=== PATIENT | male | born 1955 | race Caucasian/White ===

== ENCOUNTER 2018-01-07 00:37 | Emergency (ER) | payer OTHER ==
[2018-01-07 01:01] VITALS: BP 153/85; PULSE 75; TEMP 97.6; BMI 25.8
--- NOTE | 2018-01-07 01:14 | PDOC ---
History of Present Illness - General Chief Complaint: Blood Pressure Problem Stated Complaint: BP PROBLEM Time Seen by Provider: 01/07/18 00:46 - History of Present Illness Initial Comments: 01/07/18 01:12 CHIEF COMPLAINT: blood pressure concern HISTORY OF PRESENT ILLNESS: The patient is a 59 year old male with no significant past medical history who presents to the ED with high blood pressure. The patient reports lightheadedness this evening and went to check his blood pressure. He reports his BP was in the 160s. The patient described his lightheadedness as intermittent and now resolved. Pt denies vertigo.. The patient states he ate garlic and 20 minutes later he checked it again and it went up to the 170s, and his daughter told him to come to the ER. Pt states he has no hx of htn, but states he has been having alot of stress from work. Pt states he is currently asymptomatic. The patient denies headache, vision changes, numbness/weakness/tingling, fever, chills, cough, SOB, chest pain, palpitations, abdominal pain, nausea, vomiting, and diarrhea. PAST MEDICAL HISTORY: Denies past medical history FAMILY HISTORY: Denies SOCIAL HISTORY: Lives at home with ____. Occupation: . Denies tobacco, alcohol, illicit drug use. SURGICAL HISTORY: Denies ALLERGIES: No known drug allergies REVIEW OF SYSTEMS General/Constitutional: Denies fever or chills. Denies weakness, weight change. HEENT: Denies change in vision. Denies ear pain or discharge. Denies sore throat. Cardiovascular: Denies chest pain or shortness of breath. Respiratory: Denies cough, wheezing, or hemoptysis. Gastrointestinal: Denies nausea, vomiting, diarrhea or constipation. Denies rectal bleeding. Genitourinary: Denies dysuria, frequency, or change in urination. Musculoskeletal: Denies joint or muscle swelling or pain. Denies neck or back pain. Skin and breasts: Denies rash or easy bruising. Neurologic: Denies headache, vertigo, loss of consciousness, or loss of sensation. Psychiatric: Denies depression or anxiety. Endocrine: Denies increased thirst. Denies abnormal weight change. Hematologic/Lymphatic: Denies anemia, easy bleeding, or history of blood clots. Allergic/Immunologic: Denies hives or skin allergy. Denies latex allergy. PHYSICAL EXAM General Appearance: Well-appearing, appropriately dressed. No apparent distress , no intoxication. HEENT: EOMI, PERRLA, normal ENT inspection, normal voice, TMs normal, pharynx normal. No conjunctival pallor. No photophobia, scleral icterus. Neck: Supple. Trachea midline. No tenderness, rigidity, carotid bruit, stridor , lymphadenopathy, or thyromegaly. Respiratory/Chest: Lungs CTAB. No shortness of breath, chest tenderness, respiratory distress, accessory muscle use. No crackles, rales, rhonchi, stridor , wheezing, dullness Cardiovascular: RRR. S1, S2. No JVD, murmur, bradycardia, tachycardia. Vascular Pulses: Dorsalis-Pedis (R): 2+, Dorsalis-Pedis (L): 2+ Gastrointestinal/Abdominal: Normal bowel sounds. Abdomen soft, non-distended. No tenderness or rebound tenderness. No organomegaly, pulsatile mass, guarding , hernia, hepatomegaly, splenomegaly. Lymphatic: No adenopathy, tenderness. Musculoskeletal/Extremities: Normal inspection. FROM of all extremities, normal capillary refill. Pelvis Stable. No CVA tenderness. No tenderness to extremities, pedal edema, swelling, erythema or deformity. Integumentary: Appropriate color, dry, warm. 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 Fully oriented, alert. Appropriate mood/affect. Motor strength 5/5. No appreciable EOM palsy, facial droop or sensory deficit. 01/07/18 01:27 Past History - Past Medical History Allergies/Adverse Reactions: Allergies Allergy/AdvReac Type Severity Reaction Status Date / Time No Known Allergies Allergy Verified 01/07/18 00:59 Home Medications: Ambulatory Orders NK [No Known Home Medication] 11/17/15 - Suicide/Smoking/Psychosocial Hx Smoking History: Never smoked Have you smoked in the past 12 months: No Information on smoking cessation initiated: No Hx Alcohol Use: No Drug/Substance Use Hx: No Substance Use Type: None *Physical Exam - Vital Signs Last Vital Signs Temp Pulse Resp BP Pulse Ox 97.6 F 75 20 153/85 99 01/07/18 00:59 01/07/18 00:59 01/07/18 00:59 01/07/18 00:59 01/07/18 00:59 *DC/Admit/Observation/Transfer Diagnosis at time of Disposition: Lightheaded - Discharge Dispostion Disposition: HOME Condition at time of disposition: Stable Admit: No - Referrals Referrals: Branden Mcintyre MD [Primary Care Provider] - Daren Penn MD [Staff Physician] - - Patient Instructions Printed Discharge Instructions: DI for High Blood Pressure, How to Monitor Your Blood Pressure at Home Additional Instructions: Please follow up with your primary care doctor next week for continued management of your blood pressure. There is no cause for emergent concern today. If you develop any chest pain, shortness of breath, new headache, or any new or worsening symptoms, please return to the ER. - Post Discharge Activity
--- NOTE | 2018-01-07 08:49 | EKG ---
Test Reason : Blood Pressure : / mmHG Vent. Rate : 060 BPM Atrial Rate : 060 BPM P-R Int : 134 ms QRS Dur : 092 ms QT Int : 432 ms P-R-T Axes : 045 057 022 degrees QTc Int : 432 ms NORMAL SINUS RHYTHM NORMAL ECG WHEN COMPARED WITH ECG OF 17-NOV-2015 18:24, PREMATURE VENTRICULAR COMPLEXES ARE NO LONGER PRESENT Confirmed by ALCON LINARES, JASMIN ([id number]) on 01/07/2018 8:49:10 AM Referred By: Confirmed By:JASMIN RONDON MD
== END 2018-01-07 01:36 | disposition home or self-care (01) ==
LOC: JER 00:37
DX: I10 Essential (primary) hypertension (principal)
CPT/HCPCS: 93005; 93010; 99282-25

== ENCOUNTER 2020-07-16 10:01 | Inpatient (IN) | payer OTHER ==
[2020-07-16 10:08] VITALS: BMI 25.5
[2020-07-16] MEDS ORDERED: NITROGLYCERIN 2% OINTMENT - 1GM PACKET TD ONE ×2 (10:35→11:09)
[2020-07-16] MEDS ORDERED: ASPIRIN 325 MG ENTERIC COATED TABLET (FP) PO ONE (10:35)
[2020-07-16] MEDS ORDERED: ASPIRIN 325 MG ENTERIC COATED TABLET (FP) ONE (11:09)
[2020-07-16 11:15] LABS: BASO % 0.5 % (0-2.0); EOS % 1.9 % (0-4.5); HEMATOCRIT 48.5 % (35.4-49); HEMOGLOBIN 16.6 GM/dL (11.7-16.9); LYMPH % 20.2 % (8-40); MCH 30.3 pg (25.7-33.7); MCHC 34.3 g/dl (32.0-35.9); MEAN CELL VOLUME 88.4 fl (80-96); MEAN PLT VOLUME 7.9 fl (7.5-11.1); MONO % 8.8 % (3.8-10.2); NEUT % 68.6 % (42.8-82.8); PLATELET COUNT 311 K/MM3 (134-434); RBC 5.49 M/mm3 (4.00-5.60); RDW 13.2 % (11.9-15.9)
--- NOTE | 2020-07-16 11:28 | PDOC ---
Documentation entered by Tori Whyte SCRIBE, acting as scribe for Kendrick Saini MD. Kendrick Saini MD: This documentation has been prepared by the Pato sommers Xhesika, SCRIBE, under my direction and personally reviewed by me in its entirety. I confirm that the documentation accurately reflects all work, treatment, procedures, and medical decision making performed by me. History of Present Illness - General Chief Complaint: Chest Pain Stated Complaint: HYPERTENSION Time Seen by Provider: 07/16/20 10:16 History Source: Patient, Family Exam Limitations: No Limitations - History of Present Illness Initial Comments: 07/16/20 10:36 The patient is a 64 year old male with no significant PMH of who presents to the emergency department for chest pain since 7AM. Pt describes his pain as midsternal, 5/10 in severity, non-radiating, lasting 40min prior to self resolving. Pt denies any worsening or alleviating factors. Pt notes his BP was elevated this morning to 200/101. Pt denies any active chest pain while in the ED. Pt denies family history of heart disease. The patient denies shortness of breath, headache and dizziness. Denies fever, chills, cough, nausea, vomiting, diarrhea and constipation. Allergies: NKDA Past History - Medical History Allergies/Adverse Reactions: Allergies Allergy/AdvReac Type Severity Reaction Status Date / Time No Known Allergies Allergy Verified 07/16/20 10:04 Home Medications: Ambulatory Orders NK [No Known Home Medication] 11/17/15 COPD: No Other medical history: DENIES - Immunization History Immunization Up to Date: No - Psycho-Social/Smoking History Smoking History: Never smoked Have you smoked in the past 12 months: No - Substance Abuse Hx (Audit-C & DAST Scrn) How often the patient has a drink containing alcohol: Never Score: In Men: 4 or > Positive; In Women: 3 or > Positive: 0 Screen Result (Pos requires Nsg. Audit-10AR): Negative In the last yr the pt used illegal drug/Rx for NonMed reason: No Score: Yes response is considered Positive: 0 Screen Result (Positive result requires Nsg. DAST-10): Negative Review of Systems - Review of Systems Able to Perform ROS?: Yes Comments:: 07/16/20 10:40 CONSTITUTIONAL: No fever, no chills, no fatigue EYES: No visual changes ENT: No ear pain, no sore throat CARDIOVASCULAR: +chest pain. no palpitations RESPIRATORY: No cough, no SOB GI: No abdominal pain, no nausea, no vomiting, no constipation, no diarrhea GENITOURINARY: No dysuria, no frequency, no hematuria MUSKULOSKELETAL: No backpain, no joint pain, no myalgias SKIN: No rash NEURO: No headache *Physical Exam - Vital Signs Last Vital Signs Temp Pulse Resp BP Pulse Ox 98.3 F 83 18 153/97 98 07/16/20 10:05 07/16/20 10:05 07/16/20 10:05 07/16/20 10:05 07/16/20 10:05 - Physical Exam 07/16/20 10:41 CONSTITUTIONAL: Well-appearing; well-nourished; in no apparent distress HEAD: Normocephalic; atraumatic EYES: PERRL; EOM intact ENMT: External appears normal; normal oropharynx NECK: Supple; non-tender; no cervical lymphadenopathy CARD: Normal S1, S2; no murmurs, rubs, or gallops RESP: Normal chest excursion with respiration; breath sounds clear and equal bilaterally; no wheezes, rhonchi, or rales ABD: Soft, non-distended; non-tender; no palpable organomegaly, no palpable hernias EXT: Normal ROM in all four extremities; non-tender to palpation; distal pulses intact SKIN: Warm, dry, no rash NEURO: No focal neurological deficiencies. Heart Score/ECG Review - History History: Moderately suspicious - Electrocardiogram EKG: Normal - Age Age: >/= 65 - Risk Factors Risk Factors Heart Score: Yes Hx Hypertension Based on the list above the patient has:: 1-2 risk factors - Troponin Troponin: </= normal limit - Score Heart Score - Total: 4 - ECG Impressions Normal ECG: Yes ED Treatment Course - LABORATORY CBC & Chemistry Diagram: 07/16/20 10:55 07/16/20 10:55 Medical Decision Making - Medical Decision Making 07/16/20 11:28 Patient is 64-year-old male who presents with signs and symptoms of ACS. Initial EKG is within normal limit. Vital signs are noted. Heart score is not ed to be 4. Will obtain CBC/CMP/cardiac profile/chest x-ray. Will reassess. 07/16/20 12:13 Patient with elevated troponin. Normal chest x-ray. CBC/CMP within normal limit. Will place on telemetry/[facility] for cardiology consultation and serial enzymes. 07/16/20 16:16 Patient was accepted for transfer to [facility] cardiac cath. However due to staffing issues, transfer will be deferred until the next day. Will admit at [facility]. Discharge - Discharge Information Problems reviewed: Yes Clinical Impression/Diagnosis: Unstable angina Condition: Fair Disposition: TRANSFER ACUTE CARE/OTHER HOSP - Admission No - Follow up/Referral - Patient Discharge Instructions - Post Discharge Activity - Transfer to Acute Care Facility Receiving Facility Name: [facility] Accepting Physician:: Dr. Lizeth Benavidez Transfer Comment: 07/16/20 14:59 CONSENT OBTAINED. PT STABLE FOR TRANSFER
[2020-07-16 11:44] LABS: ALBUMIN 4.1 g/dl (3.4-5.0); BILIRUBIN,TOTAL 0.4 mg/dL (0.2-1); CALCIUM 8.2 mg/dL (8.5-10.1); TOT PROT 7.5 g/dl (6.4-8.2)
--- NOTE | 2020-07-16 12:49 | EKG ---
Test Reason : Blood Pressure : / mmHG Vent. Rate : 075 BPM Atrial Rate : 075 BPM P-R Int : 132 ms QRS Dur : 094 ms QT Int : 410 ms P-R-T Axes : 048 056 037 degrees QTc Int : 457 ms NORMAL SINUS RHYTHM POSSIBLE LEFT ATRIAL ENLARGEMENT BORDERLINE ECG WHEN COMPARED WITH ECG OF 07-JAN-2018 01:23, NO SIGNIFICANT CHANGE WAS FOUND Confirmed by Franklin Giles MD ([id number]) on 07/16/2020 12:49:14 PM Referred By: Confirmed By:Franklin Giles MD
--- NOTE | 2020-07-16 13:56 | CON.CARD ---
Consult Consult Specialty:: Cardiology Referred by:: Yeny Reason for Consultation:: cp, elevated troponin - History of Present Illness Chief Complaint: cp, htn History of Present Illness: He is a 64 year old man with a history of HTN not on medications (does not see a doctor), non smoker who presented to the ER with a complaint of 40 minutes of retrosternal chest heaviness without associated symptoms, no radiation, at rest, relieved spontaneously. He was hypertensive initially in the ER but has improved. He also complains of similar pain in quality but less intense over the past several months on exertion. This is his first episode of rest pain. ECG normal. CXR ISABELLA TnI 0.18 - History Source History Provided By: Patient, Family Member, Medical Record Limitations to Obtaining History: No Limitations - Past Medical History Cardio/Vascular: Yes: HTN - Alcohol/Substance Use Hx Alcohol Use: No - Smoking History Smoking history: Never smoked Have you smoked in the past 12 months: No Home Medications - Allergies Allergies/Adverse Reactions: Allergies Allergy/AdvReac Type Severity Reaction Status Date / Time No Known Allergies Allergy Verified 07/16/20 10:04 - Home Medications Home Medications: Ambulatory Orders NK [No Known Home Medication] 11/17/15 Family Medical History Family History: Denies Review of Systems - Review of Systems Constitutional: reports: No Symptoms Eyes: reports: No Symptoms HENT: reports: No Symptoms Neck: reports: No Symptoms Cardiovascular: reports: Chest Pain Respiratory: reports: SOB on Exertion Gastrointestinal: reports: No Symptoms Genitourinary: reports: No Symptoms Vital Signs: Vital Signs Temperature 98.3 F 07/16/20 10:05 Pulse Rate 87 07/16/20 12:35 Respiratory Rate 16 07/16/20 12:35 Blood Pressure 148/88 07/16/20 12:35 O2 Sat by Pulse Oximetry (%) 98 07/16/20 12:35 Constitutional: Yes: No Distress, Calm Eyes: Yes: Conjunctiva Clear, EOM Intact HENT: Yes: Atraumatic, Normocephalic Neck: Yes: Supple, Trachea Midline Respiratory: Yes: CTA Bilaterally Gastrointestinal: Yes: Normal Bowel Sounds, Soft Cardiovascular: Yes: Regular Rate and Rhythm JVD: No Carotid Bruit: No PMI: Non-Displaced Heart Sounds: Yes: S1, S2 Musculoskeletal: Yes: WNL Extremities: Yes: WNL Edema: No Peripheral Pulses WNL: Yes - Other Data Labs, Other Data: CBC, BMP 07/16/20 10:55 07/16/20 10:55 Troponin, BNP 07/16/20 10:55 Troponin I 0.18 H Troponin, BNP 07/16/20 10:55 Troponin I 0.18 H Imaging - Results Chest X-ray: Report Reviewed (ISABELLA) EKG: Report Reviewed (NSR, Normal ECG) Assessment/Plan He is a 64 year old man with a history of HTN not on medications (does not see a doctor), non smoker who presented to the ER with a complaint of 40 minutes of retrosternal chest heaviness without associated symptoms, no radiation, at rest, relieved spontaneously. He was hypertensive initially in the ER but has im proved. He also complains of similar pain in quality but less intense over the past several months on exertion. This is his first episode of rest pain. ECG normal. CXR ISABELLA TnI 0.18 Imp: -unstable angina pectoris. -elevated troponin places him in a high risk category. -asa -start metoprolol 50 bid -plan is to transfer to [facility] for cardiac cath (either tonight or tomorrow). -start IV heparin if recurrent chest pain. -trend troponin
--- NOTE | 2020-07-16 16:19 | PN ---
Teaching Attending Note Name of Resident: Holland Flores ATTENDING PHYSICIAN STATEMENT I saw and evaluated the patient. I reviewed the resident's note and discussed the case with the resident. I agree with the resident's findings and plan as documented. SUBJECTIVE: 64 year old male with known history of HTN, not on meds, who has not seen a physician in [place], who presents to the ED complaining of retrosternal chest pains described as a heaviness in central chest, nonradiating, lasting over 30 mins and began while at rest. At the ED, first troponin was elevated at .18. EKG showed NSR without acute ST-T wave changes. 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 ACS - telemetry monitoring - cont troponins serially - aspirin - IV heparin already ordered by shoe designer - beta bharat bid - appreciate input by shoe designer - Possibly for transfer to [facility] for cardiac cath once bed available - morphine IV prn for acute chest pains - nitroglycerin paste 2. HTN, uncontroled - cont BB 3. DVT prophylaxis - on heparin IV (#1) DW Dr Norm Flores. Agree with history, exam and plans of care.
--- NOTE | 2020-07-16 16:35 | PDOC ---
*Physical Exam - Vital Signs Last Vital Signs Temp Pulse Resp BP Pulse Ox 98.3 F 87 16 148/88 98 07/16/20 10:05 07/16/20 12:35 07/16/20 12:35 07/16/20 12:35 07/16/20 12:35 ED Treatment Course - LABORATORY CBC & Chemistry Diagram: 07/16/20 10:55 07/16/20 10:55 - ADDITIONAL ORDERS Additional order review: Laboratory Results 07/16/20 10:55 Sodium 141 Potassium 4.0 Chloride 107 Carbon Dioxide 28 Anion Gap 7 L BUN 11.0 Creatinine 1.0 Est GFR (CKD-EPI)AfAm 91.13 Est GFR (CKD-EPI)NonAf 78.63 Random Glucose 106 Calcium 8.2 L Total Bilirubin 0.4 AST 22 ALT 33 Alkaline Phosphatase 40 L Creatine Kinase 93 Troponin I 0.18 H Total Protein 7.5 Albumin 4.1 07/16/20 10:55 RBC 5.49 MCV 88.4 MCHC 34.3 RDW 13.2 MPV 7.9 Neutrophils % 68.6 Lymphocytes % 20.2 Monocytes % 8.8 Eosinophils % 1.9 Basophils % 0.5 - RADIOLOGY Radiology Studies Ordered: Category Date Time Status CHEST X-RAY PORTABLE* [RAD] Stat Radiology 07/16/20 10:35 Completed - Medications Given in the ED: ED Medications Discontinued Medications Generic Name Dose Route Start Last Admin Trade Name Freq PRN Reason Stop Dose Admin Aspirin 325 mg 07/16/20 10:35 07/16/20 11:22 Ecotrin - PO 07/16/20 10:36 325 mg ONCE ONE Administration Nitroglycerin 1 inch 07/16/20 10:35 07/16/20 11:23 Nitro-Bid 2% Paste - TD 07/16/20 10:36 1 inch ONCE ONE Administration Discharge - Discharge Information Problems reviewed: Yes Clinical Impression/Diagnosis: Unstable angina Condition: Fair - Admission Yes - Follow up/Referral - Patient Discharge Instructions - Post Discharge Activity
[2020-07-16] MEDS ORDERED: ENOXAPARIN NA (PORCINE) 80 MG/0.8 ML DISP.SYRIN SQ ONE ×2 (17:37→18:18)
[2020-07-16] MEDS ORDERED: MORPHINE SULFATE 2 MG/ML VIAL IVPUSH PRN (18:10)
[2020-07-16] MEDS ORDERED: NITROGLYCERIN 2% OINTMENT - 1GM PACKET TD PRN (18:10)
--- NOTE | 2020-07-16 18:23 | HP ---
CHIEF COMPLAINT: chest pressure PCP: HISTORY OF PRESENT ILLNESS: 64M w/ pmh of HTN presented with complaint of centralized chest pain, that doesn't radiate. Occurred at rest, lasted approx 40-45mins before resolving spontaneously. Was concerned for high BP, so checked using home arm cuff. Found to be ~200/100. Has had similiar CP in the past, occurring with long walks. Feels SOB when walking up 2flights to his apt. Denies return of CP. ER course was notable for: (1) EKG: unchanged from 01/17/18 (2) Troponin 0.18, 0.83 (3) [place] onboard Recent Travel: denies PAST MEDICAL HISTORY: HTN PAST SURGICAL HISTORY: deies Social History: Smoking: denies Alcohol: denies Drugs: denies Allergies No Known Allergies Allergy (Verified 07/16/20 10:04) HOME MEDICATIONS: Home Medications Medication Instructions Recorded NK [No Known Home Medication] 11/17/15 REVIEW OF SYSTEMS CONSTITUTIONAL: Absent: fever, chills, diaphoresis, generalized weakness, malaise, loss of appetite, weight change HEENT: Absent: rhinorrhea, nasal congestion, throat pain, throat swelling, difficulty swallowing, mouth swelling, ear pain, eye pain, visual changes CARDIOVASCULAR: CP Absent:, syncope, palpitations, irregular heart rate, lightheadedness, peripheral edema RESPIRATORY: Absent: cough, shortness of breath, dyspnea with exertion, orthopnea, wheezing, stridor, hemoptysis GASTROINTESTINAL: Absent: abdominal pain, abdominal distension, nausea, vomiting, diarrhea, constipation, melena, hematochezia GENITOURINARY: Absent: dysuria, frequency, urgency, hesitancy, hematuria, flank pain, genital pain MUSCULOSKELETAL: Absent: myalgia, arthralgia, joint swelling, back pain, neck pain SKIN: Absent: rash, itching, pallor HEMATOLOGIC/IMMUNOLOGIC: Absent: easy bleeding, easy bruising, lymphadenopathy, frequent infections ENDOCRINE: Absent: unexplained weight gain, unexplained weight loss, heat intolerance, cold intolerance NEUROLOGIC: Absent: headache, focal weakness or paresthesias, dizziness, unsteady gait, seizure, mental status changes, bladder or bowel incontinence PSYCHIATRIC: Absent: anxiety, depression, suicidal or homicidal ideation, hallucinations. PHYSICAL EXAMINATION Vital Signs - 24 hr 07/16/20 07/16/20 07/16/20 10:05 11:21 12:35 Temperature 98.3 F Pulse Rate 83 Pulse Rate [ 82 87 Apical] Respiratory 18 18 16 Rate Blood Pressure 153/97 Blood Pressure 155/81 148/88 [Right Arm] O2 Sat by Pulse 98 98 98 Oximetry (%) 07/16/20 16:45 Temperature Pulse Rate 107 H Pulse Rate [ Apical] Respiratory 20 Rate Blood Pressure 141/89 Blood Pressure [Right Arm] O2 Sat by Pulse 97 Oximetry (%) GENERAL: Awake, alert, and fully oriented, in no acute distress. HEAD: Normal with no signs of trauma. EYES: Pupils equal, round and reactive to light, extraocular movements intact, sclera anicteric, conjunctiva clear. No lid lag. EARS, NOSE, THROAT: Ears normal, nares patent, oropharynx clear without exudates. Moist mucous membranes. NECK: Normal range of motion, supple without lymphadenopathy, JVD, or masses. LUNGS: Breath sounds equal, clear to auscultation bilaterally. No wheezes, and no crackles. No accessory muscle use. HEART: Regular rate and rhythm, normal S1 and S2 without murmur, rub or gallop. ABDOMEN: Soft, nontender, not distended, normoactive bowel sounds, no guarding, no rebound, no masses. Midline abdominal bulge with valsalva, consistent with abdominal rectus diastasis. MUSCULOSKELETAL: Normal range of motion at all joints. No bony deformities or tenderness. No CVA tenderness. UPPER EXTREMITIES: 2+ pulses, warm, well-perfused. No cyanosis. No clubbing. No peripheral edema. LOWER EXTREMITIES: 2+ pulses, warm, well-perfused. No calf tenderness. No peripheral edema. NEUROLOGICAL: Cranial nerves II-XII intact. Normal speech. Normal gait. PSYCHIATRIC: Cooperative. Good eye contact. Appropriate mood and affect. SKIN: Warm, dry, normal turgor, no rashes or lesions noted, normal capillary refill. Laboratory Results - last 24 hr 07/16/20 07/16/20 07/16/20 10:55 10:55 16:30 WBC 6.0 RBC 5.49 Hgb 16.6 Hct 48.5 MCV 88.4 MCH 30.3 MCHC 34.3 RDW 13.2 Plt Count 311 MPV 7.9 Absolute Neuts (auto) 4.1 Neutrophils % 68.6 Lymphocytes % 20.2 Monocytes % 8.8 Eosinophils % 1.9 Basophils % 0.5 Nucleated RBC % 0 Sodium 141 Potassium 4.0 Chloride 107 Carbon Dioxide 28 Anion Gap 7 L BUN 11.0 Creatinine 1.0 Est GFR (CKD-EPI)AfAm 91.13 Est GFR (CKD-EPI)NonAf 78.63 Random Glucose 106 Calcium 8.2 L Total Bilirubin 0.4 AST 22 ALT 33 Alkaline Phosphatase 40 L Creatine Kinase 93 94 Troponin I 0.18 H 0.83 H* Total Protein 7.5 Albumin 4.1 ASSESSMENT/PLAN: 64M w pmh of HTN, not on home meds presents with complaint of midsternal chest pressure while are rest. Has had symptoms suggestive of stable angina in the past. Elevated troponin. Admitted for Unstable Angina. #unstable angina > troponin 0.18, 0.83 > EKG unchanged > HbA1c, lipid panel --pending - lovenox 80 BID for now - Cardio Tisha consult: --metoprolol 50 BID --possible transf to [facility] for Cath on 07/17/20 FEN -no mIVF -NPO at [place] in case of cath DVT PPX -therapeutic lovenox Visit type - Medication Review Med list reviewed for High Risk Meds patients 65 and older: Yes - Emergency Visit Emergency Visit: Yes ED Registration Date: 07/16/20 Care time: The patient presented to the Emergency Department on the above date and was hospitalized for further evaluation of their emergent condition. - New Patient This patient is new to me today: Yes Date on this admission: 07/16/20 - Critical Care Critical Care patient: No ATTENDING PHYSICIAN STATEMENT I saw and evaluated the patient. I reviewed the resident's note and discussed the case with the resident. I agree with the resident's findings and plan as documented. SUBJECTIVE: OBJECTIVE: ASSESSMENT AND PLAN:
--- NOTE | 2020-07-16 18:46 | HP ---
CHIEF COMPLAINT: chest pain PCP: has not seen a physician in 2 years HISTORY OF PRESENT ILLNESS: 64 YO M PMH HTN (on no medications; does not follow-up with physician) presents with crushing, heavy non-radiating midsternal chest pain at rest. The patient woke up with this pain at 8 AM, and it lasted 45 minutes. He took his blood pressure, which was found to be 198/100, so he tried using garlic and lying down to alleviate his symptoms. His blood pressure reduced to 163/96, but his chest pain did not improve, prompting him to come to the ED. Denies palpitations, diaphoresis, SOB, dizziness, lightheadedness. This was the first time he has had chest pain at rest. However, this is not the first time he had crushing/heavy midsternal chest pain. Within the last year, he had 15 episodes of chest pain with similar qualities on exertion that resolved spontaneously. On his Last admission in 2018, patient was in ED for BP in 170s, which resolved in the ED. ER course was notable for: (1) 153/97, HR 83, 98.3 F, 98% RA (2) EKG: NSR, possible LA enlargement, QTC 457 (3) trop: 0.18, 0.83 (4) ASA 325 mg, nitro paste (5) CXR: no acute chest pathology (6) lovenox 80 mg SQ (1 mg/kg) for trop of 0.83 Recent Travel: denies PAST MEDICAL HISTORY: HTN questionable HLD. patient reports possible slightly elevated cholesterol. 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 Family History mother diabetes father stroke, osteoporosis Allergies No Known Allergies Allergy (Verified 07/16/20 10:04) HOME MEDICATIONS: Home Medications Medication Instructions Recorded NK [No Known Home Medication] 11/17/15 REVIEW OF SYSTEMS CONSTITUTIONAL: Absent: fever, chills, diaphoresis, generalized weakness, malaise, loss of appetite, weight change HEENT: Absent: rhinorrhea, nasal congestion, throat pain, throat swelling, difficulty swallowing, mouth swelling, ear pain, eye pain, visual changes CARDIOVASCULAR: chest pain Absent: syncope, palpitations, irregular heart rate, lightheadedness, peripheral edema RESPIRATORY: Absent: cough, shortness of breath, dyspnea with exertion, orthopnea, wheezing, stridor, hemoptysis GASTROINTESTINAL: Absent: abdominal pain, abdominal distension, nausea, vomiting, diarrhea, constipation, melena, hematochezia GENITOURINARY: Absent: dysuria, frequency, urgency, hesitancy, hematuria, flank pain, genital pain MUSCULOSKELETAL: Absent: myalgia, arthralgia, joint swelling, back pain, neck pain SKIN: Absent: rash, itching, pallor HEMATOLOGIC/IMMUNOLOGIC: Absent: easy bleeding, easy bruising, lymphadenopathy, frequent infections ENDOCRINE: Absent: unexplained weight gain, unexplained weight loss, heat intolerance, cold intolerance NEUROLOGIC: Absent: headache, focal weakness or paresthesias, dizziness, unsteady gait, seizure, mental status changes, bladder or bowel incontinence PSYCHIATRIC: Absent: anxiety, depression, suicidal or homicidal ideation, hallucinations. PHYSICAL EXAMINATION Vital Signs - 24 hr 07/16/20 07/16/20 07/16/20 10:05 11:21 12:35 Temperature 98.3 F Pulse Rate 83 Pulse Rate [ 82 87 Apical] Respiratory 18 18 16 Rate Blood Pressure 153/97 Blood Pressure 155/81 148/88 [Right Arm] O2 Sat by Pulse 98 98 98 Oximetry (%) 07/16/20 16:45 Temperature Pulse Rate 107 H Pulse Rate [ Apical] Respiratory 20 Rate Blood Pressure 141/89 Blood Pressure [Right Arm] O2 Sat by Pulse 97 Oximetry (%) GENERAL: Awake, alert, and fully oriented, in no acute distress. HEAD: Normal with no signs of trauma. EYES: Pupils equal, round and reactive to light, extraocular movements intact, sclera anicteric, conjunctiva clear. No lid lag. EARS, NOSE, THROAT: Ears normal, nares patent, oropharynx clear without exudates. Moist mucous membranes. NECK: Normal range of motion, supple without JVD LUNGS: Breath sounds equal, clear to auscultation bilaterally. No wheezes, and no crackles. No accessory muscle use. HEART: Regular rate and rhythm, normal S1 and S2 without murmur, rub or gallop. ABDOMEN: Soft, nontender, not distended, normoactive bowel sounds, no guarding, no rebound, UPPER EXTREMITIES: 2+ pulses, warm, well-perfused. No cyanosis. No clubbing. No peripheral edema. LOWER EXTREMITIES: 2+ pulses, warm, well-perfused. No calf tenderness. No peripheral edema. NEUROLOGICAL: Cranial nerves II-XII intact. Normal speech. PSYCHIATRIC: Cooperative. Good eye contact. Appropriate mood and affect. SKIN: Warm, dry, normal turgor, no rashes or lesions noted, normal capillary refill. Laboratory Results - last 24 hr 07/16/20 07/16/20 07/16/20 10:55 10:55 16:30 WBC 6.0 RBC 5.49 Hgb 16.6 Hct 48.5 MCV 88.4 MCH 30.3 MCHC 34.3 RDW 13.2 Plt Count 311 MPV 7.9 Absolute Neuts (auto) 4.1 Neutrophils % 68.6 Lymphocytes % 20.2 Monocytes % 8.8 Eosinophils % 1.9 Basophils % 0.5 Nucleated RBC % 0 Sodium 141 Potassium 4.0 Chloride 107 Carbon Dioxide 28 Anion Gap 7 L BUN 11.0 Creatinine 1.0 Est GFR (CKD-EPI)AfAm 91.13 Est GFR (CKD-EPI)NonAf 78.63 Random Glucose 106 Calcium 8.2 L Total Bilirubin 0.4 AST 22 ALT 33 Alkaline Phosphatase 40 L Creatine Kinase 93 94 Troponin I 0.18 H 0.83 H* Total Protein 7.5 Albumin 4.1 ASSESSMENT/PLAN: 64 YO M PMH HTN (on no medications; does not follow-up with physician) presents with crushing, heavy non-radiating midsternal chest pain at rest. Found to elevated troponins who was admitted for unstable angina. Awaiting transfer to [facility] for cardiac cath. #Unstable Angina -HEART 5 -EKG: NSR, troponin uptrending (0.18>0.83) -Cardiology Consult appreciated >metoprolol 50 BID >trend troponin > IV Heparin for chest pain if it reoccurs >possible cardiac cath at [facility] tomorrow -f/u lipid. Start statin -f/u HA1C -nitroglycerin PRN chest pain -lovenox 80 mg sq BID (1 ml/kg) for trop of 0.83 #QTC prolongation avoid QTC prolonging medications #FEN no IV fluids monitor electrolytes NPO after midnight for possible cardiac cath tomorrow #DVT PPX lovenox 80 mg sq BID (1 ml/kg) for trop of 0.83 #DISPO maintain tele Family Medical History Family History: As Documented Family Hx Diabetes: Mother Visit type - Medication Review Med list reviewed for High Risk Meds patients 65 and older: Yes - Emergency Visit Emergency Visit: Yes ED Registration Date: 07/16/20 Care time: The patient presented to the Emergency Department on the above date and was hospitalized for further evaluation of their emergent condition. - New Patient This patient is new to me today: Yes Date on this admission: 07/16/20 - Critical Care Critical Care patient: No ATTENDING PHYSICIAN STATEMENT I saw and evaluated the patient. I reviewed the resident's note and discussed the case with the resident. I agree with the resident's findings and plan as documented. SUBJECTIVE: OBJECTIVE: ASSESSMENT AND PLAN:
[2020-07-16] MEDS: INSULIN SLIDING SCALE (NOVOLOG) 1 VIAL SQ SCH (21:10)
[2020-07-16] MEDS ORDERED: METOPROLOL TARTRATE 50 MG TABLET (FP) PO SCH (22:00)
[2020-07-17 05:39] VITALS: BP 123/79; PULSE 65; TEMP 98.8
[2020-07-17] MEDS ORDERED: ENOXAPARIN NA (PORCINE) 80 MG/0.8 ML DISP.SYRIN SQ SCH (06:00)
[2020-07-17] MEDS: INSULIN SLIDING SCALE (NOVOLOG) 1 VIAL SQ SCH (06:02)
[2020-07-17 06:29] LABS: HEMATOCRIT 43.7 % (35.4-49); HEMOGLOBIN 14.7 GM/dL (11.7-16.9); MCH 29.6 pg (25.7-33.7); MCHC 33.6 g/dl (32.0-35.9); PLATELET COUNT 292 K/MM3 (134-434); RBC 4.97 M/mm3 (4.00-5.60); RDW 13.2 % (11.9-15.9); WHITE BLOOD COUNT 8.4 K/mm3 (4.0-10.0)
[2020-07-17 07:01] LABS: BLOOD UREA NITROGEN 12.5 mg/dL (7-18); CALCIUM 8.8 mg/dL (8.5-10.1); CREATININE 1.1 mg/dL (0.55-1.3); MAGNESIUM 2.1 mg/dL (1.8-2.4); PHOSPHOROUS 3.6 mg/dL (2.5-4.9); POTASSIUM 4.7 mmol/L (3.5-5.1)
--- NOTE | 2020-07-17 17:12 | DS ---
Physical Exam: SUBJECTIVE: No overnight events. Patient seen and examined. Endorsed chest pain improved. OBJECTIVE: Vital Signs Period Temp Pulse Resp BP Sys/Manuel Pulse Ox Last 24 Hr 98.2 F-98.8 F 60-84 18-18 113-127/70-79 96-100 PHYSICAL EXAM GENERAL: The patient is awake, alert, and fully oriented, in no acute distress. HEAD: Normal with no signs of trauma. EYES: PERRL, extraocular movements intact, sclera anicteric, conjunctiva clear. ENT: Ears normal, nares patent, oropharynx clear without exudates, moist mucous membranes. NECK: Trachea midline, full range of motion, supple. LUNGS: Breath sounds equal, clear to auscultation bilaterally, no wheezes, no crackles, no accessory muscle use. HEART: Regular rate and rhythm, S1, S2 without murmur, rub or gallop. ABDOMEN: Soft, nontender, nondistended, normoactive bowel sounds, no guarding, no rebound, no hepatosplenomegaly, no masses. EXTREMITIES: 2+ pulses, warm, well-perfused, no edema. NEUROLOGICAL: Normal speech, gait not observed. PSYCH: Normal mood, normal affect. LABS Laboratory Results - last 24 hr 07/16/20 07/16/20 07/16/20 16:30 17:00 21:07 WBC RBC Hgb Hct MCV MCH MCHC RDW Plt Count MPV Sodium Potassium Chloride Carbon Dioxide Anion Gap BUN Creatinine Est GFR (CKD-EPI)AfAm Est GFR (CKD-EPI)NonAf POC Glucometer 133 Random Glucose Hemoglobin A1c % Calcium Phosphorus Magnesium Creatine Kinase 94 Troponin I 0.83 H* Triglycerides Cholesterol Total LDL Cholesterol HDL Cholesterol TSH COVID-19 ([facility]) Not detected 07/16/20 07/17/20 07/17/20 23:30 05:30 05:30 WBC 8.4 RBC 4.97 Hgb 14.7 Hct 43.7 MCV 88.0 MCH 29.6 MCHC 33.6 RDW 13.2 Plt Count 292 MPV 8.0 Sodium 141 Potassium 4.7 Chloride 109 H Carbon Dioxide 28 Anion Gap 5 L BUN 12.5 Creatinine 1.1 Est GFR (CKD-EPI)AfAm 81.22 Est GFR (CKD-EPI)NonAf 70.07 POC Glucometer Random Glucose 92 Hemoglobin A1c % Calcium 8.8 Phosphorus 3.6 Magnesium 2.1 Creatine Kinase Troponin I 0.59 H Triglycerides 126 Cholesterol 222 H Total LDL Cholesterol 158 H HDL Cholesterol 39 L TSH 1.33 COVID-19 ([facility]) 07/17/20 07/17/20 07/17/20 05:30 05:59 08:44 WBC RBC Hgb Hct MCV MCH MCHC RDW Plt Count MPV Sodium Potassium Chloride Carbon Dioxide Anion Gap BUN Creatinine Est GFR (CKD-EPI)AfAm Est GFR (CKD-EPI)NonAf POC Glucometer 71 93 Random Glucose Hemoglobin A1c % 5.6 Calcium Phosphorus Magnesium Creatine Kinase Troponin I Triglycerides Cholesterol Total LDL Cholesterol HDL Cholesterol TSH COVID-19 ([facility]) HOSPITAL COURSE: 64 YO M PMH HTN (on no medications; does not follow-up with physician) presents with crushing, heavy non-radiating midsternal chest pain at rest. EKG showed NSR, possible LA enlargement, QTC 457. Found to have elevated troponins (trop: 0.18, 0.83)who was admitted for ACS. Was given ASA 325 mg, nitro paste, and lovenox 80 mg SQ in ED. CXR showed no acute pathology. Pt was transferred to [facility] for cardiac cath. Pt is stable for discharge. Date of Admission:07/16/20 Date of Discharge: 07/17/20 Minutes to complete discharge: 40 Discharge Summary Problems reviewed: Yes Reason For Visit: ACUTE CORONARY SYNDROME Condition: Fair - Instructions Disposition: TRANSFER ACUTE CARE/OTHER HOSP - Home Medications Comprehensive Discharge Medication List: Ambulatory Orders NK [No Known Home Medication] 11/17/15 This patient is new to me today: No Emergency Visit: Yes ED Registration Date: 07/16/20 Care time: The patient presented to the Emergency Department on the above date and was hospitalized for further evaluation of their emergent condition. Critical Care patient: No - Discharge Referral Referred to [facility] Med [facility].C[facility] No ATTENDING PHYSICIAN STATEMENT I saw and evaluated the patient. I reviewed the resident's note and discussed the case with the resident. I agree with the resident's findings and plan as documented. SUBJECTIVE: OBJECTIVE: ASSESSMENT AND PLAN:
== END 2020-07-17 09:00 | disposition short-term general hospital (02) | DRG 282 ==
LOC: JER 10:01 → JERBED 17:01 → JICU 19:41
PROVIDERS: ADMIT Internal Medicine; ATTEND Internal Medicine
DX: I21.4 Non-ST elevation (NSTEMI) myocardial infarction (principal); I24.0 Acute coronary thrombosis not resulting in myocardial infarction; I10 Essential (primary) hypertension; R94.31 Abnormal electrocardiogram [ECG] [EKG]
CPT/HCPCS: 36415; 71045-TC-FY; 80048; 80053; 80061; 82550; 82962; 83036; 83721; 83735; 84100; 84443; 84484; 85025; 85027; 93005; 93010; 99285-25; U0003

== ENCOUNTER 2023-11-02 10:53 | Day surgery (SDC) | payer OTHER ==
[2023-11-01 08:37] VITALS: BMI 25.5
[2023-11-02 11:23] VITALS: TEMP 97.3
[2023-11-02] MEDS ORDERED: LIDOCAINE HCL/PF 2% SDV 5ML VIAL ONE (12:23)
[2023-11-02 13:20] VITALS: RESP 18
[2023-11-02 15:08] VITALS: BP 120/60; PULSE 77
== END 2023-11-02 13:15 | disposition home or self-care (01) ==
LOC: FASU-ENDO 10:53
PROVIDERS: ATTEND Internal Medicine Gastroenterology
PROC: 0DJD8ZZ Inspection of Lower Intestinal Tract, Via Natural or Artificial Opening Endoscopic (ICD-10-PCS; principal; 2023-11-02 12:21)
DX: Z12.11 Encounter for screening for malignant neoplasm of colon (principal); K64.1 Second degree hemorrhoids